=== PATIENT | male | born 2005 | race Two or more races ===

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

== ENCOUNTER 2024-12-13 16:56 | Emergency (ER) | payer SELFPAY ==
[~2024-12-13] VITALS: Ht 172.7 cm; Wt 59.1 kg
[2024-12-13 17:05] VITALS: TEMP 97.7
[2024-12-13] MEDS: PROPARACAINE HCL 0.5% 15 ML OPHTHALMIC SOLUTION OS ONE (19:26)
[2024-12-13] MEDS: FLUORESCEIN SODIUM 1 MG STRIP OS ONE (19:27)
[2024-12-13] MEDS ORDERED: ERYT3.5O8 OS (20:04)
[2024-12-13] MEDS: ERYTHROMYCIN 0.5% 3.5 GM TUBE OPHTHALMIC OINTMENT OS ONE (20:13)
[2024-12-13 20:21] VITALS: BP 124/67; PULSE 77; RESP 19; O2SAT 96
== END 2024-12-13 20:31 | disposition home or self-care (01) ==
LOC: EMS 16:56
DX: H10.89 Other conjunctivitis (principal)
CPT/HCPCS: 99283